=== PATIENT | female | born 1990 | race Two or more races ===

== ENCOUNTER 2019-07-26 16:50 | Observation (INO) | payer MEDICAID ==
[~2019-07-26] VITALS: Ht 152.4 cm; Wt 99.8 kg
[2019-07-26] MEDS ORDERED: LACTATED RINGERS 1,000 ML IV SCH (18:25)
[2019-07-26 18:36] VITALS: BP 125/85
[2019-07-26] MEDS ORDERED: MORPHINE SULFATE 4 MG/ML SYR IVP PRN (18:40)
[2019-07-26] MEDS ORDERED: MORPHINE SULFATE 10 MG/ML VIAL ONE (21:37)
[2019-07-26 21:42] VITALS: BP 124/81
== END 2019-07-26 22:30 | disposition home or self-care (01) ==
LOC: MLD 16:50
PROVIDERS: ADMIT Obstetrics & Gynecology; ATTEND Obstetrics & Gynecology
DX: O26.893 Other specified pregnancy related conditions, third trimester (principal); R10.2 Pelvic and perineal pain; Z3A.37 37 weeks gestation of pregnancy
CPT/HCPCS: 81000; G0378; J2270; J7120

== ENCOUNTER 2019-08-05 09:02 | Inpatient (IN) | payer MEDICAID ==
[~2019-08-05] VITALS: Ht 152.4 cm; Wt 99.8 kg
[2019-08-05] MEDS ORDERED: LACTATED RINGERS 1,000 ML IV SCH (10:33)
[2019-08-05] MEDS ORDERED: CARBOPROST 250 MCG/ML AMP IM PRN (10:35)
[2019-08-05] MEDS ORDERED: OXYTOCIN 20 UNITS in LACTATED RINGERS 1,000 ML IV SCH (10:35)
[2019-08-05] MEDS ORDERED: METHYLERGONOVINE 0.2 MG/ML AMP IM PRN (10:35)
[2019-08-05 11:12] LABS: BASOPHILS % (AUTO) 0.2 % (0.0-2.0); EOSINOPHILS # (AUTO) 0.1 K/uL (0-0.4); EOSINOPHILS % (AUTO) 0.5 % (0.0-4.0); HEMATOCRIT 38.8 % (36-48); HEMOGLOBIN 12.9 g/dL (12.0-16.0); LYMPHOCYTES # (AUTO) 1.6 K/uL (2.5-16.5); LYMPHOCYTES % (AUTO) 14.4 % (20.5-51.1); MEAN CORPUSCULAR HEMOGLOBIN 28 pg (27-31); MEAN CORPUSCULAR HGB CONC 33 g/dL (33-37); MEAN CORPUSCULAR VOLUME 84.7 fL (80-94); MONOCYTES # (AUTO) 0.7 K/uL (0.8-1.0); MONOCYTES % (AUTO) 6.3 % (1.7-9.3); NEUTROPHILS # (AUTO) 8.6 K/uL (1.8-7.7); NEUTROPHILS % (AUTO) 78.6 % (42.2-75.2); PLATELET COUNT (AUTO) 351 K/uL (140-450); RED BLOOD CELL COUNT(AUTO) 4.57 MIL/uL (4.20-5.40); RED CELL DISTRIBUTION WIDTH 14.5 % (11.6-13.7); WHITE BLOOD COUNT (AUTO) 10.9 K/uL (4.8-10.8)
[2019-08-05 13:19] LABS: APPEARANCE,URINE CLEAR (CLEAR); BILIRUBIN,URINE NEGATIVE (NEGATIVE); BLOOD, URINE 1+ (NEGATIVE); COLOR,URINE YELLOW (YELLOW); LEUKOCYTE ESTERASE ,URINE NEGATIVE (NEGATIVE); NITRITE, URINE NEGATIVE (NEGATIVE); UGLUCOSE NEGATIVE (NEGATIVE)
[2019-08-05 13:22] LABS: RBC,URINE 0-5 /HPF (0-5); WBC,URINE 0-5 /HPF (0-5)
[2019-08-05] MEDS ORDERED: OXYTOCIN 20 UNITS/LR PREMIX 1,000 ML IV ONE (13:50)
[2019-08-05] MEDS ORDERED: MORPHINE SULFATE 10 MG/ML VIAL ONE (19:50)
[2019-08-05] MEDS ORDERED: MORPHINE SULFATE 5 MG/ML VIAL IVP PRN (19:50)
[2019-08-05] MEDS ORDERED: PROMETHAZINE 25 MG/ML VIAL ONE (19:55)
[2019-08-05 23:08] VITALS: BP 137/79
[2019-08-05] MEDS: PROMETHAZINE 25 MG/ML VIAL IM PRN (23:09)
[2019-08-06] MEDS ORDERED: LIDOCAINE 1% 500 MG/50 ML VIAL ONE (00:34)
[2019-08-06] MEDS ORDERED: MORPHINE SULFATE 10 MG/ML VIAL ONE (01:46)
[2019-08-06] MEDS: PROMETHAZINE 25 MG/ML VIAL IM PRN (01:57)
[2019-08-06] MEDS ORDERED: AMPICILLIN 2,000 MG in NACL 0.9% 100 ML IV SCH (04:05)
[2019-08-06] MEDS ORDERED: AMPICILLIN 2,000 MG VIAL ONE (04:07)
[2019-08-06] MEDS ORDERED: SODIUM PHOSPHATE 118 ML ENEM RC PRN (05:20)
[2019-08-06] MEDS ORDERED: METHYLERGONOVINE 0.2 MG/ML AMP IM PRN (05:20)
[2019-08-06] MEDS ORDERED: oxyCODONE/APAP 5/325 MG 1 TAB TAB PO PRN (05:20)
[2019-08-06] MEDS ORDERED: TEMAZEPAM 15 MG CAP PO PRN (05:20)
[2019-08-06] MEDS ORDERED: HYDROcodone/APAP 5/325 MG 1 TAB TAB PO PRN (05:20)
[2019-08-06] MEDS ORDERED: OXYTOCIN 10 UNITS/ML VIAL IM PRN (05:20)
[2019-08-06] MEDS ORDERED: BENZOCAINE/MENTHOL 20%-0.5% 60 GM CAN TP PRN (05:20)
[2019-08-06] MEDS ORDERED: IBUPROFEN 800 MG TAB PO PRN (05:20)
--- NOTE | 2019-08-06 08:43 | NUR ---
PATIENT HAS BEEN SCREENED AND CATEGORIZED LOW NUTRITION RISK. PATIENT WILL BE SEEN WITHIN 7 DAYS OF ADMISSION. 08/11/[address]
[2019-08-06] MEDS ORDERED: DOCUSATE SOD/SENNA 50/8.6 MG 1 TAB PO SCH (21:00)
[2019-08-07 06:29] LABS: HEMATOCRIT 35.7 % (36-48); HEMOGLOBIN 11.6 g/dL (12.0-16.0)
[2019-08-07 11:33] LABS: RAPID PLASMA REAGIN NON-REACTIVE (Non Reactiv)
== END 2019-08-07 12:30 | disposition home or self-care (01) | DRG 560 ==
LOC: MLD 09:02 → OBSVTOIN 09:02 → MLD 10:26 → MFCC 08-06 07:50
PROVIDERS: ADMIT Obstetrics & Gynecology; ATTEND Obstetrics & Gynecology
PROC: 10E0XZZ Delivery of Products of Conception, External Approach (ICD-10-PCS; principal; 2019-08-06)
PROC: 3E0234Z Introduction of Serum, Toxoid and Vaccine into Muscle, Percutaneous Approach (ICD-10-PCS; 2019-08-06)
DX: O70.0 First degree perineal laceration during delivery (principal); R71.0 Precipitous drop in hematocrit; Z23 Encounter for immunization; Z37.0 Single live birth; Z3A.38 38 weeks gestation of pregnancy
CPT/HCPCS: 36415; 59409; 81001; 85018; 85025; 86592; 86886; 86900; 86901; 90715; C1758; J0290; J2001; J2270; J2550; J2590; J7120